=== PATIENT | female | born 1995 | race Caucasian/White ===

== ENCOUNTER 2019-02-08 14:31 | Emergency (ER) | payer SELFPAY ==
[2019-02-08] MEDS ORDERED: Ibuprofen 800 MG TAB ONE (15:02)
--- NOTE | 2019-02-08 15:50 | RAD ---
LEFT HAND THREE VIEWS: 02/08/19 HISTORY: Injury left hand pain. FINDINGS/IMPRESSION: There is a minimally displaced fracture involving the volar aspect of the base of the middle phalanx of the fifth digit/little finger with involvement of the articular surface. POS: [facility]
== END 2019-02-08 15:35 | disposition home or self-care (01) ==
LOC: ERS 14:31
DX: S62.657A Nondisplaced fracture of middle phalanx of left little finger, initial encounter for closed fracture (principal); F17.210 Nicotine dependence, cigarettes, uncomplicated; W23.0XXA Caught, crushed, jammed, or pinched between moving objects, initial encounter

== ENCOUNTER 2019-10-27 12:55 | Emergency (ER) | payer SELFPAY ==
--- NOTE | 2019-10-27 14:59 | ULT ---
EXAM: US Breast Limited Lt DATE: 10/27/2019 2:20 PM INDICATION: Left breast pain around nipple areolar complex COMPARISON: None. FINDING: Submitted grayscale and color sonographic images demonstrate no definite drainable fluid co llection or mass. Mild breast ducts and vessels are seen within the retroareolar region of the left breast. IMPRESSION:No definite sonographic abnormality identified in the region of interest. Negative imaging should never deter biopsy if findings on clinical exam are suspicious. Follow-up clinical evaluation is recommended.
== END 2019-10-27 15:16 | disposition home or self-care (01) ==
LOC: ERS 12:55
DX: N60.12 Diffuse cystic mastopathy of left breast (principal); F41.9 Anxiety disorder, unspecified; F32.9 Major depressive disorder, single episode, unspecified; F17.210 Nicotine dependence, cigarettes, uncomplicated

== ENCOUNTER 2020-03-25 13:46 | Outpatient (CLI) | payer MEDICAID ==
--- NOTE | 2020-03-25 14:44 | MMO ---
Bilateral MAMMO Bilat Diag [facility]. CLINICAL HISTORY: Patient is 25 years old and is seen for diagnostic exam,lump or thickening and pain in the left breast. The patient has no family history of breast cancer. The patient has no personal history of cancer. VIEWS: The views performed were: bilateral craniocaudal with tomosynthesis; bilateral mediolateral oblique with tomosynthesis; and bilateral mediolateral with tomosynthesis. FILMS COMPARED: The present examination has been compared to prior imaging studies performed on 10/27/2019, and at [facility] on 03/25/2020. This study has been interpreted with the assistance of computer-aided detection. MAMMOGRAM FINDINGS: There are scattered fibroglandular densities. US of the left breast was performed. There are no suspicious masses, calcifications or areas of architectural distortion in either breast. In the right breast, there are no suspicious masses, calcifications or areas of architectural distortion. IMPRESSION: FINDING IN THE LEFT BREAST REQUIRES ADDITIONAL EVALUATION. AN ULTRASOUND EXAM IS RECOMMENDED. THE RESULTS OF THIS EXAM WERE SENT TO THE PATIENT. ACR BI-RADS Category 0 - Incomplete: Need additional imaging evaluation. [facility] will notify the patient of the need for additional imaging services. MAMMOGRAPHY NOTE: 1. A negative mammogram report should not delay a biopsy if a dominant of clinically suspicious mass is present. 2. Approximately 10% to 15% of breast cancers are not detected by mammography. 3. Adenosis and dense breasts may obscure an underlying neoplasm. Reported by: BECKY PRIEST MD Electonically Signed: [id number]
--- NOTE | 2020-03-25 14:51 | ULT ---
LEFT BREAST ULTRASOUND: HISTORY: A 25-year-old female with left breast mass. Patient reports interval decrease in size since the doct or visit. FINDINGS: Comparison is made with the ultrasound of 10/27/2019 and correlation is made with mammograms of the s boy date. FINDINGS: Sonographic evaluation of the left retroareolar breast (site of palpable abnormality) demonstrates a small amount of complex fluid which is not well loculated. No abnormal blood flow is seen in this re gion. IMPRESSION: BIRADS category 3 - probably benign findings. A 3-month followup left breast ultrasound is recommend ed.
== END 2020-03-25 13:47 | disposition home or self-care (01) ==
LOC: BICMAMMO 13:46
PROVIDERS: ATTEND Nurse Practitioner Adult Health
DX: N63.20 Unspecified lump in the left breast, unspecified quadrant (principal); N63.10 Unspecified lump in the right breast, unspecified quadrant
CPT/HCPCS: 77066; G0279

== ENCOUNTER 2022-01-14 07:44 | Outpatient (CLI) | payer MEDICAID | END 2022-01-14 07:45 | disposition home or self-care (01) | LOC: BICULT 07:44 | PROVIDERS: ATTEND Nurse Practitioner Women's Health | DX: N61.1 Abscess of the breast and nipple (principal); R93.89 Abnormal findings on diagnostic imaging of other specified body structures ==